=== PATIENT | male | born 1955 | race Caucasian/White ===

== ENCOUNTER → 2021-09-02 08:59 | Outpatient (CLI) | payer OTHER, SELFPAY ==
--- NOTE | 2021-09-02 09:01 | DI.MRI.S_ITS ---
PROCEDURE: MR KNEE RT WO CON INDICATIONS: persistent pain Right knee TECHNIQUE: Noncontrast sagittal PD fast spin echo and T2 fast spin echo with fat saturation, sagittal 3-D FLASH with fat saturation; coronal T1 spin echo and PD fast spin echo with fat saturation, and axial PD fast spin echo with fat saturation through the knee. COMPARISON: None. FINDINGS: Image quality: Excellent. Menisci: Intermediate signal intensity is seen within the medial and lateral menisci without extension to an articular surface, consistent with intrasubstance degeneration. There is no meniscal extrusion. Cruciate ligaments: The anterior and posterior cruciate ligaments appear intact. Medial structures: The medial collateral ligament appears intact. The semimembranosus tendon insertions and meniscocapsular junction appear intact. Visualized portions of the pes anserinus tendons appear normal. No abnormal bursal fluid. Lateral structures: The lateral collateral ligament, long and short heads of the biceps femoris tendon appear intact. The popliteus tendon appears intact. No signs of posterolateral corner injury. Iliotibial band appears normal. Anterior structures: The quadriceps and patellar tendons appear intact. Patellar alignment is normal. No femoral trochlear dysplasia or ventral trochlear prominence. No edema in the infrapatellar fat pad. Bones and cartilage: No bone marrow contusions or fractures. Focal moderate grade cartilage loss is seen in the central weight-bearing portion of the medial femoral condyle near the intercondylar notch. The lateral compartment articular cartilages are grossly intact. There is full-thickness cartilage loss at the median ridge of the patella with areas of high-grade and full-thickness cartilage loss in the medial and lateral patellar facets with subchondral cystic changes and marginal osteophyte formation. Joint space: There is a small joint effusion. A trace medial popliteal cyst is present. There is a small amount of fluid tracking along the popliteus tendon sheath. Mild edema is seen surrounding the distal adductor jonelle tendon at its insertion onto the adductor tubercle. IMPRESSION: 1. Soft tissue edema is seen surrounding the distal adductor jonelle tendon insertion onto the adductor tubercle that may indicate low-grade partial tearing. 2. Mild intrasubstance degeneration in the medial and lateral menisci without a discrete tear. 3. Intact cruciate and collateral ligaments. No acute trabecular bone injury. 4. Full-thickness cartilage loss at the median ridge of the patella with surrounding grade 3-4 chondromalacia and associated subchondral cystic changes. Focal grade 2-3 cartilage loss is seen in the central medial femoral condyle. 5. Small joint effusion. Dictated by: Aden William M.D. on 09/02/2021 at 11:02 Approved by: Aden William M.D. on 09/02/2021 at 11:14
== END ==
PROVIDERS: PCP Family Medicine; Referring Provider Family Medicine; Visit Provider Family Medicine
DX: M22.41 Chondromalacia patellae, right knee (principal); M25.561 Pain in right knee; R60.0 Localized edema
CPT/HCPCS: 73721

== ENCOUNTER → 2021-12-21 13:39 | Outpatient (CLI) | payer OTHER, SELFPAY ==
[2021-12-21 19:10] LABS: Alanine Aminotransferase 21 IU/L (<50); Albumin 4.3 g/dL (3.5-5.0); Albumin Globulin Ratio 1.7 (1.0-2.8); Alkaline Phosphatase 70 U/L (38-126); Aspartate Aminotransferase 24 IU/L (17-59); BUN Creatinine Ratio 23.3 (6-22); Bilirubin Total 1.2 mg/dL (0.2-1.3); Blood Urea Nitrogen 20 mg/dL (9-20); Calcium 9.5 mg/dL (8.4-10.2); Carbon Dioxide 30 mmol/L (22-32); Chloride 99 mmol/L (98-107); Estimated Glomerular Filt Rate > 60.0 mL/min (>60); Globulin 2.6 g/dL (1.7-4.1); Glucose 155 mg/dL (80-110); HEMOLYSIS < 15 (0-50); Potassium 3.9 mmol/L (3.4-5.1); Sodium 137 mmol/L (137-145); Total Protein 6.9 g/dL (6.3-8.2)
[2021-12-21 19:11] LABS: Hemoglobin A1C% w Est Avg Glu 7.3 % (4.0-6.0)
[2021-12-21 19:12] LABS: Add Manual Diff / Slide Review NO; Basophils Absolute Auto 100 /uL (0-100); Eosinophils Absolute Auto 100 /uL (0-450); Eosinophils Percent Auto 1.4 % (2-4); Hematocrit 45.2 % (41-53); Hemoglobin 15.7 g/dL (13.5-17.5); Lymphocytes Absolute Auto 2100 /uL (1100-4500); Lymphocytes Percent Auto 30.3 % (25-40); Mean Corpuscular HGB Conc 34.8 % (30-36); Mean Corpuscular Hemoglobin 30.6 PG (26-34); Monocytes Absolute Auto 800 /uL (0-900); Monocytes Percent Auto 10.8 % (3-14); Neutrophils Absolute Auto 4000 /uL (1500-7000); Neutrophils Percent Auto 56.5 % (50-75); Platelet Count 340 X10^3/uL (150-400); Red Blood Cell Count 5.14 X10^6/uL (4.5-5.9); Red Cell Distribution Width 12.7 % (11.6-14.8)
[2021-12-21 19:44] LABS: Prostate Specific Antigen 4.19 ng/mL (0.10-4.00)
== END ==
PROVIDERS: PCP Family Medicine; Visit Provider Family Medicine
DX: I10 Essential (primary) hypertension (principal); R35.1 Nocturia
CPT/HCPCS: 80053; 83036; 84153; 85025

== ENCOUNTER 2022-03-24 09:56 | Emergency (ER) | payer OTHER, SELFPAY ==
[2022-03-24 10:01] VITALS: BP 157/84; PULSE 86; RESP 14; TEMP 36.7; O2SAT 96; BMI 25.0
--- NOTE | 2022-03-24 10:27 | ED_ITS ---
HPI - General Adult General Chief complaint: Fever Stated complaint: Abd pain, fever/sweats x 9 days Time Seen by Provider: 03/24/22 10:20 Source: patient Mode of arrival: Ambulatory History of Present Illness HPI narrative: 66-year-old male here for evaluation of approximately 10 days of chills and subjective fevers and also generalized abdominal discomfort. No nausea vomiting. No change in bowel habits. No recent travel. No rashes. Was seen at the [facility]. He states he has been tested 2 times in the past 2 days and have been negative. He had an x-ray performed on the clinic. He was sent here today for labs and was told to come to the emergency department if his symptoms were not better. Related Data Previous Rx's Medication Instructions Recorded lisinopril 20 mg tablet 20 mg PO HS #90 tabs 12/15/21 lisinopril 20 1 tab PO DAILY #90 tabs 12/15/21 mg-hydrochlorothiazide 25 mg tablet metoprolol succinate 25 mg 25 mg PO DAILY #90 tabs 12/15/21 tablet,extended release 24 hr Allergies Allergy/AdvReac Type Severity Reaction Status Date / Time Penicillins Allergy Mild Verified 03/24/22 10:06 Review of Systems Constitutional Constitutional: Reports system reviewed and no additional complaints, except as documented Cardiovascular Cardiovascular: Denies chest pain and Denies dyspnea Respiratory Respiratory: Denies dyspnea Gastrointestinal Gastrointestinal: Reports abdominal pain, Denies diarrhea, Denies nausea and Denies vomiting Genitourinary Genitourinary: Denies dysuria Integumentary/Breasts Skin/Breast: Denies rash Neurologic Neurologic: Reports system reviewed and no additional complaints, except as documented Patient History Medical History Chicken pox (~1959) Generalized anxiety disorder Hearing loss Measles (~1960) Mumps (~1960) Osteoarthritis of right knee Surgical History (Updated 04/04/21 @ 15:29 by Yolanda Guillen) Anesthesia History of heart surgery History of surgery Family History (Updated 04/04/21 @ 15:30 by Yolanda Guillen) Father History of heart disease Mother Diabetes mellitus Social History Smoking Status: Former smoker Smoking Status: Former smoker alcohol intake frequency: 0-2 drinks per day Substance Use Type: does not use Exam Initial Vital Signs Initial Vital Signs: Vital Signs Temperature 98.1 F 03/24/22 10:01 Pulse Rate 86 03/24/22 10:01 Respiratory Rate 14 03/24/22 10:01 Blood Pressure 157/84 H 03/24/22 10:01 Pulse Oximetry 96 03/24/22 10:01 Oxygen Delivery Method 03/24/22 10:01 Const General: cooperative and healthy appearing HENMT Head: normal to inspection and normocephalic Resp Effort & Inspection: normal respiratory effort Cardio Rate: regular rate GI Other: No rebound, no guarding, mild generalized tenderness, well-healed surgical scar consistent with his history of pyloric stenosis as a child Skin Other: Well-healed surgical scar in his abdomen consistent with his prior history of pyloric stenosis Neuro General: patient alert, patient awake, patient oriented x3 and moves all extremities Extrem General: normal to inspection and capillary refill normal Psych Appearance: grossly normal and well kempt Course Orders Ordered: ED Orders 03/24/22 10:32 CT abdomen pelvis wo con Stat Vital Signs Vital signs: Vital Signs - 8 hr 03/24/22 10:01 Temperature 98.1 F Pulse Rate 86 Respiratory Rate 14 Blood Pressure 157/84 H Pulse Oximetry 96 Oxygen Delivery Method Room Air Medical Decision Making Imaging Data CT scan - abdomen/pelvis: Radiologist's Impression: [place] [address] CT Scan Report Signed Patient: Stefano Slaughter MR#: [id number] : 1955 Acct:[id number] Age/Sex: 66 / M Date of Service: 03/24/22 Loc: ED Accession Number: [id number] ?? Procedure: CT abdomen pelvis wo con Ordering Provider: Sonu Chisholm D.O. PROCEDURE:? CT ABDOMEN PELVIS WO CON ? INDICATIONS:? chills and generalized abd pain for 10 days ? TECHNIQUE:? Noncontrast 5 mm thick sections acquired from the diaphragms to the symphysis.? 5 mm coronal and sagittal reformats were then performed.? For radiation dose reduction, the following was used:? automated exposure control, adjustment of mA and/or kV according to patient size.? ? COMPARISON:? [facility], CT, CT-IVP, 05/20/2009, 11:23.? [facility] ([place]), CR, XR KUB, 03/23/2022, 16:12. ? FINDINGS:? Image quality:? Excellent.? ? ABDOMEN:? Lung bases:? No pleural effusion. ? Solid organs:? Hepatic steatosis is present.? No evidence of bile duct dilation on this noncontrast exam.? No radiopaque gallstones.? Pancreas is normal in contours.? Spleen is normal in size.? No adrenal nodules.? No urinary stone or hydroureteronephrosis. ? Peritoneum and bowel:? Unenhanced bowel loops demonstrate normal wall thickness and caliber.? Normal appendix.? No free fluid or air.? ? Nodes and vessels:? No retroperitoneal or mesenteric adenopathy by size criteria.? Aorta and inferior vena cava are unremarkable in caliber.? ? ? PELVIS:? Genitourinary:? No bladder stones demonstrated.? Coarse prostatic calcifications present as before, likely postinflammatory. ? Miscellaneous:? Fat containing right inguinal hernia. ? Bones:? Multilevel degenerative changes of the spine. ? IMPRESSION:? 1. No acute abnormality visualized within the abdomen or pelvis on this noncontrast exam. 2. Hepatic steatosis. 3. Fat containing right inguinal hernia.? ? ? Dictated by: Aden Wilkerson M.D. on 03/24/2022 at 10:58 ? ? Approved by: Aden Wilkerson M.D. on 03/24/2022 at 11:12?? MDM Narrative Medical decision making narrative: Review of his outpatient labs today are unremarkable. The CT scan of his abdomen does not show any signs of acute pathology. He has no skin changes over the area. No indication for surgical consultation. No indication for antibiotics. Informed the patient of the findings today. Informed him that he needed to contact his primary doctor for follow-up. He was given return precautions. He expressed understanding and agreement. Discharge Plan Departure Patient Disposition: Home Clinical Impression: Abdominal pain Instructions: DI for Abdominal Pain-Adult Activity Restrictions/Additional Instructions: Continue to take all of your medications as directed. Follow-up with your primary doctor when you return home. Return to the emergency department for any new symptoms. Prescriptions: No Action lisinopril 20 mg tablet 20 mg PO HS Qty: 90 3RF lisinopril-hydrochlorothiazide 20-25 mg tablet 1 tab PO DAILY Qty: 90 3RF metoprolol succinate 25 mg tablet extended release 24 hr 25 mg PO DAILY Qty: 90 3RF Referrals: Sixto Hall MD [Primary Care Provider] - Visit Report Forms: Patient Portal/API
--- NOTE | 2022-03-24 10:32 | DI.CT.S_ITS ---
PROCEDURE: CT ABDOMEN PELVIS WO CON INDICATIONS: chills and generalized abd pain for 10 days TECHNIQUE: Noncontrast 5 mm thick sections acquired from the diaphragms to the symphysis. 5 mm coronal and sagittal reformats were then performed. For radiation dose reduction, the following was used: automated exposure control, adjustment of mA and/or kV according to patient size. COMPARISON: [facility], CT, CT-IVP, 05/20/2009, 11:23. [facility] ([facility] CR, XR KUB, 03/23/2022, 16:12. FINDINGS: Image quality: Excellent. ABDOMEN: Lung bases: No pleural effusion. Solid organs: Hepatic steatosis is present. No evidence of bile duct dilation on this noncontrast exam. No radiopaque gallstones. Pancreas is normal in contours. Spleen is normal in size. No adrenal nodules. No urinary stone or hydroureteronephrosis. Peritoneum and bowel: Unenhanced bowel loops demonstrate normal wall thickness and caliber. Normal appendix. No free fluid or air. Nodes and vessels: No retroperitoneal or mesenteric adenopathy by size criteria. Aorta and inferior vena cava are unremarkable in caliber. PELVIS: Genitourinary: No bladder stones demonstrated. Coarse prostatic calcifications present as before, likely postinflammatory. Miscellaneous: Fat containing right inguinal hernia. Bones: Multilevel degenerative changes of the spine. IMPRESSION: 1. No acute abnormality visualized within the abdomen or pelvis on this noncontrast exam. 2. Hepatic steatosis. 3. Fat containing right inguinal hernia. Dictated by: Aden Wilkerson M.D. on 03/24/2022 at 10:58 Approved by: Aden Wilkerson M.D. on 03/24/2022 at 11:12
== END 2022-03-24 11:25 | disposition home or self-care (01) ==
PROVIDERS: Emergency Provider Emergency Medicine; PCP Family Medicine
DX: R10.84 Generalized abdominal pain (principal)
CPT/HCPCS: 36415; 74176; 80053; 83690; 84443; 85007; 85025; 99283

== ENCOUNTER → 2022-03-28 12:14 | Outpatient (CLI) | payer OTHER, SELFPAY ==
[2022-03-28 19:30] LABS: Hematocrit 43.4 % (41-53); Hemoglobin 15.1 g/dL (13.5-17.5); Mean Corpuscular HGB Conc 34.8 % (30-36); Mean Corpuscular Hemoglobin 30.5 PG (26-34); Mean Corpuscular Volume 87.7 fL (80-100); Platelet Count 90 X10^3/uL (150-400); Red Blood Cell Count 4.95 X10^6/uL (4.5-5.9); Red Cell Distribution Width 13.8 % (11.6-14.8); White Blood Cell Count 4.4 X10^3/uL (4.5-11.0)
[2022-03-28 19:39] LABS: Add Manual Diff / Slide Review YES
[2022-03-28 20:16] LABS: Appearance Urine UA CLEAR; Bilirubin Urine UA 1+ (NEGATIVE); Glucose Urine UA TRACE g/dL (Negative); Ketones Urine UA TRACE (NEGATIVE); Leukocyte Esterase Urine UA 1+ (NEGATIVE); Nitrite Urine UA NEGATIVE (Negative); Occult Blood Urine UA 2+ (Negative); Protein Urine UA 2+ (Negative)
[2022-03-28 20:21] LABS: Neutrophils Absolute Manual 2332 /uL (3000-5900); RBC Morphology Normal Morphology; Total Cells Counted 100
[2022-03-28 21:38] LABS: Color Urine UA Dark Yellow
[2022-03-28 21:40] LABS: Ictotest Urine Positive (Negative)
[2022-03-28 21:41] LABS: Amorphous Sediment Urine 4+; RBC Urine None Seen (0-5/HPF); Squamous Epithelial Cell Urine 0-1 /HPF (0-5/HPF); WBC Urine None Seen (0-5/HPF)
[2022-03-28 21:42] LABS: Bacteria Urine Few (2-10); Calcium Oxalate Crystals Urine Few; Culture Indicated Urine Specimen Cultured
[2022-03-29 08:09] LABS: Hepatitis A Ab IgM Negative (Negative); Hepatitis A Ab Total Positive (Negative)
== END ==
PROVIDERS: PCP Family Medicine; Visit Provider Physician Assistant
DX: D69.6 Thrombocytopenia, unspecified (principal); R35.1 Nocturia; R39.9 Unspecified symptoms and signs involving the genitourinary system
CPT/HCPCS: 81003; 81015; 85007; 85025; 86708; 87086

== ENCOUNTER → 2022-03-30 09:45 | Outpatient (CLI) | payer OTHER, SELFPAY ==
[2022-03-30 19:04] LABS: INR 1.2 (0.9-1.3); Prothrombin Time 12.9 SECONDS (10.1-12.7)
[2022-03-30 19:38] LABS: Appearance Urine UA CLEAR; Bilirubin Urine UA NEGATIVE (NEGATIVE); Color Urine UA YELLOW; Glucose Urine UA TRACE g/dL (Negative); Ketones Urine UA NEGATIVE (NEGATIVE); Leukocyte Esterase Urine UA TRACE (NEGATIVE); Nitrite Urine UA NEGATIVE (Negative); Occult Blood Urine UA TRACE-LYSED (Negative); Protein Urine UA 2+ (Negative); Urobilinogen Urine UA >=8.0 E.U./dL (0.2); pH Urine UA 6.5 (4.5-8.0)
[2022-03-30 19:43] LABS: Alanine Aminotransferase 23 IU/L (<50); Albumin 3.4 g/dL (3.5-5.0); Albumin Globulin Ratio 1.1 (1.0-2.8); Alkaline Phosphatase 96 U/L (38-126); Aspartate Aminotransferase 21 IU/L (17-59); BUN Creatinine Ratio 13.9 (6-22); Bilirubin Total 0.8 mg/dL (0.2-1.3); Blood Urea Nitrogen 14 mg/dL (9-20); Calcium 8.2 mg/dL (8.4-10.2); Carbon Dioxide 27 mmol/L (22-32); Chloride 103 mmol/L (98-107); Estimated Glomerular Filt Rate > 60 mL/min (>60); Globulin 3.2 g/dL (1.7-4.1); Glucose 132 mg/dL (80-110); HEMOLYSIS < 15 (0-50); Potassium 3.9 mmol/L (3.4-5.1); Sodium 137 mmol/L (137-145); Total Protein 6.6 g/dL (6.3-8.2)
[2022-03-30 19:46] LABS: Bacteria Urine None Seen; Culture Indicated Urine Cult Not Indicated; Hematocrit 43.6 % (41-53); Hemoglobin 15.3 g/dL (13.5-17.5); Mean Corpuscular HGB Conc 35.1 % (30-36); Mean Corpuscular Hemoglobin 30.6 PG (26-34); Mean Corpuscular Volume 87.2 fL (80-100); Platelet Count 119 X10^3/uL (150-400); RBC Urine 1-5/HPF (0-5/HPF); Red Blood Cell Count 5.01 X10^6/uL (4.5-5.9); Red Cell Distribution Width 13.7 % (11.6-14.8); WBC Urine None Seen (0-5/HPF)
[2022-03-30 20:11] LABS: Prostate Specific Antigen 11.3 ng/mL (0.10-4.00)
[2022-03-30 20:45] LABS: Folate 6.7 ng/mL (2.76-20.0); Vitamin B12 624 pg/mL (239-931)
[2022-03-30 21:49] LABS: Neutrophils Absolute Manual 3360 /uL (3000-5900); Platelet Estimate Decreased on smear; RBC Morphology Normal Morphology; Total Cells Counted 100
[2022-03-31 16:46] LABS: Hepatitis B Surface Antigen NEGATIVE s/c (NEGATIVE)
[2022-03-31 17:01] LABS: HIV 1 & 2 Ab/Ag 4th Gen Combo NEGATIVE (NEGATIVE); Hep C Virus Ab w/Reflex Quant NEGATIVE s/c (NEGATIVE)
[2022-04-05 14:15] LABS: Fecal Immunochemical Test Negative (Negative)
== END ==
PROVIDERS: PCP Family Medicine; Visit Provider Physician Assistant
DX: D69.6 Thrombocytopenia, unspecified (principal); R19.5 Other fecal abnormalities; R61 Generalized hyperhidrosis
CPT/HCPCS: 80053; 81001; 82274; 82607; 82746; 84153; 85025; 85610; 86803; 87340; 87389

== ENCOUNTER → 2022-07-13 10:21 | Outpatient (CLI) | payer OTHER, SELFPAY ==
[2022-07-13 19:34] LABS: Alanine Aminotransferase 60 IU/L (<50); Albumin 2.9 g/dL (3.5-5.0); Alkaline Phosphatase 146 U/L (38-126); Aspartate Aminotransferase 50 IU/L (17-59); BUN Creatinine Ratio 46.3 (6-22); Bilirubin Total 0.5 mg/dL (0.2-1.3); Blood Urea Nitrogen 25 mg/dL (9-20); Calcium 8.7 mg/dL (8.4-10.2); Carbon Dioxide 27 mmol/L (22-32); Chloride 100 mmol/L (98-107); Estimated Glomerular Filt Rate > 60 mL/min (>60); Globulin 3.9 g/dL (1.7-4.1); Glucose 114 mg/dL (80-110); Hematocrit 31.5 % (41-53); Hemoglobin 10.6 g/dL (13.5-17.5); Mean Corpuscular HGB Conc 33.5 % (30-36); Mean Corpuscular Hemoglobin 31.1 PG (26-34); Mean Corpuscular Volume 92.8 fL (80-100); Platelet Count 549 X10^3/uL (150-400); Red Blood Cell Count 3.39 X10^6/uL (4.5-5.9); Red Cell Distribution Width 18.2 % (11.6-14.8); Sodium 137 mmol/L (137-145); Total Protein 6.8 g/dL (6.3-8.2); White Blood Cell Count 14.5 X10^3/uL (4.5-11.0)
[2022-07-13 19:35] LABS: Albumin Globulin Ratio 0.7 (1.0-2.8); HEMOLYSIS < 15 (0-50)
[2022-07-13 19:38] LABS: Add Manual Diff / Slide Review YES
[2022-07-13 20:06] LABS: Anisocytosis 2+; Neutrophils Absolute Manual 9280 /uL (3000-5900); Total Cells Counted 100
[2022-07-13 20:55] LABS: Ferritin 1450 ng/mL (18-464)
== END ==
PROVIDERS: PCP Family Medicine; Referring Provider Family Medicine; Visit Provider Internal Medicine
DX: D76.1 Hemophagocytic lymphohistiocytosis (principal)
CPT/HCPCS: 80053; 82728; 85007; 85025

== ENCOUNTER → 2022-08-23 11:43 | Outpatient (CLI) | payer OTHER, SELFPAY | PROVIDERS: PCP Family Medicine; Visit Provider Urology | DX: R30.0 Dysuria (principal); N39.41 Urge incontinence; R35.1 Nocturia; R97.20 Elevated prostate specific antigen [PSA]; R53.81 Other malaise; R39.9 Unspecified symptoms and signs involving the genitourinary system; N39.8 Other specified disorders of urinary system; N32.89 Other specified disorders of bladder | CPT/HCPCS: 51798; 81002; 87077; 87086; 87186; 99214 ==

== ENCOUNTER → 2022-09-14 08:48 | Outpatient (CLI) | payer OTHER, SELFPAY | PROVIDERS: PCP Family Medicine; Referring Provider Urology; Visit Provider Urology | DX: R39.9 Unspecified symptoms and signs involving the genitourinary system (principal) | CPT/HCPCS: 81002; 87086 ==

== ENCOUNTER → 2022-09-27 11:30 | Outpatient (CLI) | payer OTHER, SELFPAY ==
[2022-09-27 19:42] LABS: Alanine Aminotransferase 15 IU/L (<50); Albumin Globulin Ratio 0.8 (1.0-2.8); Alkaline Phosphatase 120 U/L (38-126); Aspartate Aminotransferase 25 IU/L (17-59); BUN Creatinine Ratio 26.2 (6-22); Bilirubin Total 0.8 mg/dL (0.2-1.3); Blood Urea Nitrogen 17 mg/dL (9-20); Calcium 9.7 mg/dL (8.4-10.2); Carbon Dioxide 22 mmol/L (22-32); Chloride 101 mmol/L (98-107); Estimated Glomerular Filt Rate > 60 mL/min (>60); Gamma Glutamyl Transpeptidase 59 U/L (15-73); Globulin 3.7 g/dL (1.7-4.1); Glucose 129 mg/dL (80-110); HEMOLYSIS < 15 (0-50); Potassium 3.6 mmol/L (3.4-5.1); Sodium 136 mmol/L (137-145); Total Protein 6.7 g/dL (6.3-8.2)
[2022-09-27 19:50] LABS: Add Manual Diff / Slide Review NO; Basophils Absolute Auto 100 /uL (0-100); Basophils Percent Auto 0.3 % (0-2); Eosinophils Absolute Auto 100 /uL (0-450); Eosinophils Percent Auto 0.2 % (2-4); Hematocrit 33.7 % (41-53); Hemoglobin 11.4 g/dL (13.5-17.5); Lymphocytes Absolute Auto 3900 /uL (1100-4500); Lymphocytes Percent Auto 15.8 % (25-40); Mean Corpuscular HGB Conc 33.8 % (30-36); Mean Corpuscular Hemoglobin 29.7 PG (26-34); Monocytes Absolute Auto 2200 /uL (0-900); Monocytes Percent Auto 9.1 % (3-14); Neutrophils Absolute Auto 18400 /uL (1500-7000); Neutrophils Percent Auto 74.6 % (50-75); Platelet Count 517 X10^3/uL (150-400); Red Blood Cell Count 3.83 X10^6/uL (4.5-5.9); Red Cell Distribution Width 14.5 % (11.6-14.8); White Blood Cell Count 24.7 X10^3/uL (4.5-11.0)
[2022-09-27 20:09] LABS: TSH w/ Reflex to FT4 1.94 uIU/mL (0.47-4.68)
[2022-09-27 20:14] LABS: Ferritin 674 ng/mL (18-464)
== END ==
PROVIDERS: PCP Family Medicine; Visit Provider Physician Assistant
DX: R39.9 Unspecified symptoms and signs involving the genitourinary system (principal); Z87.440 Personal history of urinary (tract) infections; D76.1 Hemophagocytic lymphohistiocytosis; Z87.448 Personal history of other diseases of urinary system
CPT/HCPCS: 80053; 82728; 82977; 84443; 85025; 87086

== ENCOUNTER → 2022-10-05 10:32 | Outpatient (CLI) | payer OTHER, SELFPAY ==
[2022-10-05 20:10] LABS: Add Manual Diff / Slide Review NO; Basophils Absolute Auto 100 /uL (0-100); Basophils Percent Auto 0.7 % (0-2); Eosinophils Absolute Auto 100 /uL (0-450); Eosinophils Percent Auto 0.5 % (2-4); Hematocrit 34.1 % (41-53); Hemoglobin 11.3 g/dL (13.5-17.5); Lymphocytes Absolute Auto 3300 /uL (1100-4500); Lymphocytes Percent Auto 15.9 % (25-40); Mean Corpuscular HGB Conc 33.2 % (30-36); Mean Corpuscular Hemoglobin 29.6 PG (26-34); Monocytes Absolute Auto 1700 /uL (0-900); Monocytes Percent Auto 8.5 % (3-14); Neutrophils Absolute Auto 15300 /uL (1500-7000); Neutrophils Percent Auto 74.4 % (50-75); Platelet Count 692 X10^3/uL (150-400); Red Blood Cell Count 3.83 X10^6/uL (4.5-5.9); Red Cell Distribution Width 14.1 % (11.6-14.8); White Blood Cell Count 20.5 X10^3/uL (4.5-11.0)
[2022-10-05 20:16] LABS: Alanine Aminotransferase 17 IU/L (<50); Albumin 2.9 g/dL (3.5-5.0); Albumin Globulin Ratio 0.8 (1.0-2.8); Alkaline Phosphatase 113 U/L (38-126); Aspartate Aminotransferase 23 IU/L (17-59); BUN Creatinine Ratio 15.5 (6-22); Bilirubin Total 1.2 mg/dL (0.2-1.3); Blood Urea Nitrogen 13 mg/dL (9-20); Carbon Dioxide 25 mmol/L (22-32); Chloride 100 mmol/L (98-107); Estimated Glomerular Filt Rate > 60 mL/min (>60); Globulin 3.6 g/dL (1.7-4.1); Glucose 139 mg/dL (80-110); HEMOLYSIS < 15 (0-50); Sodium 135 mmol/L (137-145); Total Protein 6.5 g/dL (6.3-8.2); Triglycerides 175 mg/dL (35-150)
[2022-10-05 20:41] LABS: Ferritin 623 ng/mL (18-464)
== END ==
PROVIDERS: Internal Medicine Hematology & Oncology; PCP Family Medicine; Visit Provider Family Medicine
DX: D76.1 Hemophagocytic lymphohistiocytosis (principal); R50.9 Fever, unspecified
CPT/HCPCS: 80053; 82728; 84478; 85025; 86356; 86359; 86360

== ENCOUNTER → 2022-10-24 12:02 | Outpatient (CLI) | payer OTHER, SELFPAY ==
[2022-10-24 20:24] LABS: Add Manual Diff / Slide Review NO; Basophils Absolute Auto 100 /uL (0-100); Basophils Percent Auto 0.3 % (0-2); Eosinophils Absolute Auto 0 /uL (0-450); Eosinophils Percent Auto 0.1 % (2-4); Hematocrit 32.3 % (41-53); Hemoglobin 10.6 g/dL (13.5-17.5); Lymphocytes Absolute Auto 3200 /uL (1100-4500); Lymphocytes Percent Auto 17.6 % (25-40); Mean Corpuscular HGB Conc 32.8 % (30-36); Mean Corpuscular Hemoglobin 28.3 PG (26-34); Mean Corpuscular Volume 86.3 fL (80-100); Monocytes Absolute Auto 2100 /uL (0-900); Monocytes Percent Auto 11.7 % (3-14); Neutrophils Absolute Auto 12900 /uL (1500-7000); Neutrophils Percent Auto 70.3 % (50-75); Platelet Count 576 X10^3/uL (150-400); Red Blood Cell Count 3.74 X10^6/uL (4.5-5.9); White Blood Cell Count 18.3 X10^3/uL (4.5-11.0)
[2022-10-24 20:33] LABS: Alanine Aminotransferase 15 IU/L (<50); Albumin 2.5 g/dL (3.5-5.0); Albumin Globulin Ratio 0.6 (1.0-2.8); Alkaline Phosphatase 107 U/L (38-126); Amylase 38 U/L (30-110); Aspartate Aminotransferase 23 IU/L (17-59); BUN Creatinine Ratio 16.1 (6-22); Bilirubin Total 1.2 mg/dL (0.2-1.3); Blood Urea Nitrogen 15 mg/dL (9-20); Calcium 8.4 mg/dL (8.4-10.2); Carbon Dioxide 21 mmol/L (22-32); Chloride 101 mmol/L (98-107); Estimated Glomerular Filt Rate > 60 mL/min (>60); Globulin 3.9 g/dL (1.7-4.1); Glucose 153 mg/dL (80-110); HEMOLYSIS < 15 (0-50); Lipase 62 U/L (23-300); Potassium 4.1 mmol/L (3.4-5.1); Sodium 134 mmol/L (137-145); Total Protein 6.4 g/dL (6.3-8.2)
[2022-10-24 21:05] LABS: Ferritin 519 ng/mL (18-464)
[2022-10-24 21:09] LABS: Appearance Urine UA CLEAR; Bilirubin Urine UA 1+ (NEGATIVE); Glucose Urine UA NEGATIVE (Negative); Ketones Urine UA NEGATIVE (NEGATIVE); Leukocyte Esterase Urine UA 1+ (NEGATIVE); Nitrite Urine UA NEGATIVE (Negative); Occult Blood Urine UA NEGATIVE (Negative); Protein Urine UA TRACE (Negative); Specific Gravity Urine UA 1.025 (1.000-1.035); Urobilinogen Urine UA 0.2 E.U./dL (0.2); pH Urine UA 5.5 (4.5-8.0)
[2022-10-24 21:10] LABS: Color Urine UA Amber
[2022-10-24 21:19] LABS: Ictotest Urine Negative (Negative)
[2022-10-24 21:23] LABS: Amorphous Sediment Urine 1+; Bacteria Urine Occasional (0-1); Calcium Oxalate Crystals Urine Few; Culture Indicated Urine Specimen Cultured; RBC Urine 0-1/HPF (0-5/HPF); Squamous Epithelial Cell Urine None Seen (0-5/HPF); WBC Urine 1-5/HPF (0-5/HPF)
[2022-10-24 22:47] LABS: HEMOLYSIS < 15 (0-50); Iron 24 ug/dL (49-181)
[2022-10-24 22:54] LABS: Transferrin 90 mg/dL (206-381)
[2022-10-24 23:00] LABS: Prostate Specific Antigen 1.35 ng/mL (0.10-4.00)
[2022-10-24 23:18] LABS: TSH w/ Reflex to FT4 2.74 uIU/mL (0.47-4.68)
[2022-10-26 15:08] LABS: Percent Iron Saturation 15 % (20-50); Total Iron Binding Capacity 160 ug/dL (261-462)
== END ==
PROVIDERS: PCP Family Medicine; Visit Provider Family Medicine
DX: D72.829 Elevated white blood cell count, unspecified (principal); D76.1 Hemophagocytic lymphohistiocytosis; I48.91 Unspecified atrial fibrillation; I95.9 Hypotension, unspecified; R50.9 Fever, unspecified; R97.20 Elevated prostate specific antigen [PSA]; Z87.440 Personal history of urinary (tract) infections
CPT/HCPCS: 80053; 81001; 82150; 82728; 83540; 83550; 83690; 84153; 84443; 85025; 87086

== ENCOUNTER → 2022-12-07 14:11 | Outpatient (CLI) | payer OTHER, SELFPAY ==
[2022-12-07 19:33] LABS: Alanine Aminotransferase 16 IU/L (<50); Albumin 3.1 g/dL (3.5-5.0); Albumin Globulin Ratio 0.8 (1.0-2.8); Alkaline Phosphatase 104 U/L (38-126); Aspartate Aminotransferase 27 IU/L (17-59); BUN Creatinine Ratio 39.1 (6-22); Bilirubin Total 0.5 mg/dL (0.2-1.3); Blood Urea Nitrogen 25 mg/dL (9-20); Calcium 8.7 mg/dL (8.4-10.2); Carbon Dioxide 32 mmol/L (22-32); Chloride 101 mmol/L (98-107); Estimated Glomerular Filt Rate > 60 mL/min (>60); Glucose 106 mg/dL (80-110); HEMOLYSIS < 15 (0-50); Lactate Dehydrogenase 134 U/L (120-246); Magnesium 1.9 mg/dL (1.6-2.3); Phosphorous 4.4 mg/dL (2.3-3.7); Potassium 4.4 mmol/L (3.4-5.1); Sodium 140 mmol/L (137-145); Total Protein 7.1 g/dL (6.3-8.2)
[2022-12-07 19:57] LABS: Basophils Absolute Auto 100 /uL (0-100); Basophils Percent Auto 0.8 % (0-2); Eosinophils Absolute Auto 100 /uL (0-450); Eosinophils Percent Auto 0.6 % (2-4); Hematocrit 34.7 % (41-53); Hemoglobin 11.4 g/dL (13.5-17.5); Lymphocytes Absolute Auto 4400 /uL (1100-4500); Lymphocytes Percent Auto 43.9 % (25-40); Mean Corpuscular HGB Conc 32.8 % (30-36); Mean Corpuscular Hemoglobin 31.1 PG (26-34); Mean Corpuscular Volume 94.6 fL (80-100); Monocytes Absolute Auto 1500 /uL (0-900); Monocytes Percent Auto 14.8 % (3-14); Neutrophils Absolute Auto 4000 /uL (1500-7000); Neutrophils Percent Auto 39.9 % (50-75); Platelet Count 526 X10^3/uL (150-400); Red Blood Cell Count 3.66 X10^6/uL (4.5-5.9)
[2022-12-07 20:04] LABS: Add Manual Diff / Slide Review SLIDE REVIEW
[2022-12-07 20:07] LABS: Ferritin 360 ng/mL (18-464)
[2022-12-07 21:43] LABS: RBC Morphology Normal Morphology
== END ==
PROVIDERS: Internal Medicine; PCP Family Medicine; Visit Provider Family Medicine
DX: D76.1 Hemophagocytic lymphohistiocytosis (principal)
CPT/HCPCS: 80053; 82728; 83615; 83735; 84100; 85025

== ENCOUNTER → 2022-12-21 14:07 | Outpatient (CLI) | payer OTHER, SELFPAY ==
[2022-12-21 19:06] LABS: Add Manual Diff / Slide Review NO; Basophils Absolute Auto 100 /uL (0-100); Basophils Percent Auto 0.8 % (0-2); Eosinophils Absolute Auto 100 /uL (0-450); Eosinophils Percent Auto 0.9 % (2-4); Hemoglobin 12.8 g/dL (13.5-17.5); Lymphocytes Absolute Auto 5400 /uL (1100-4500); Lymphocytes Percent Auto 40.3 % (25-40); Mean Corpuscular HGB Conc 33.6 % (30-36); Mean Corpuscular Hemoglobin 31.8 PG (26-34); Mean Corpuscular Volume 94.8 fL (80-100); Monocytes Absolute Auto 1600 /uL (0-900); Monocytes Percent Auto 11.7 % (3-14); Neutrophils Absolute Auto 6200 /uL (1500-7000); Neutrophils Percent Auto 46.3 % (50-75); Platelet Count 411 X10^3/uL (150-400); Red Blood Cell Count 4.01 X10^6/uL (4.5-5.9); Red Cell Distribution Width 19.8 % (11.6-14.8); White Blood Cell Count 13.5 X10^3/uL (4.5-11.0)
[2022-12-21 19:10] LABS: Alanine Aminotransferase 20 IU/L (<50); Albumin 3.3 g/dL (3.5-5.0); Albumin Globulin Ratio 0.8 (1.0-2.8); Alkaline Phosphatase 93 U/L (38-126); Aspartate Aminotransferase 24 IU/L (17-59); BUN Creatinine Ratio 50.9 (6-22); Bilirubin Total 0.4 mg/dL (0.2-1.3); Blood Urea Nitrogen 28 mg/dL (9-20); Carbon Dioxide 31 mmol/L (22-32); Chloride 101 mmol/L (98-107); Estimated Glomerular Filt Rate > 60 mL/min (>60); Globulin 3.9 g/dL (1.7-4.1); Glucose 105 mg/dL (80-110); HEMOLYSIS < 15 (0-50); Lactate Dehydrogenase 134 U/L (120-246); Phosphorous 4.1 mg/dL (2.3-3.7); Potassium 4.5 mmol/L (3.4-5.1); Sodium 139 mmol/L (137-145); Total Protein 7.2 g/dL (6.3-8.2)
[2022-12-21 19:46] LABS: Ferritin 327 ng/mL (18-464)
== END ==
PROVIDERS: Internal Medicine; PCP Family Medicine; Visit Provider Physician Assistant
DX: D76.1 Hemophagocytic lymphohistiocytosis (principal)
CPT/HCPCS: 80053; 82728; 83615; 83735; 84100; 85025

== ENCOUNTER → 2023-07-10 14:29 | Outpatient (CLI) | payer OTHER, SELFPAY ==
[2023-07-10 19:59] LABS: Add Manual Diff / Slide Review NO; Basophils Absolute Auto 0 /uL (0-100); Basophils Percent Auto 0.6 % (0-2); Eosinophils Absolute Auto 100 /uL (0-450); Eosinophils Percent Auto 1.4 % (2-4); Hematocrit 43.4 % (41-53); Hemoglobin 15.1 g/dL (13.5-17.5); Lymphocytes Absolute Auto 3400 /uL (1100-4500); Lymphocytes Percent Auto 41.9 % (25-40); Mean Corpuscular HGB Conc 34.9 % (30-36); Mean Corpuscular Hemoglobin 29.9 PG (26-34); Mean Corpuscular Volume 85.9 fL (80-100); Monocytes Absolute Auto 900 /uL (0-900); Neutrophils Absolute Auto 3700 /uL (1500-7000); Neutrophils Percent Auto 45.1 % (50-75); Platelet Count 289 X10^3/uL (150-400); Red Blood Cell Count 5.06 X10^6/uL (4.5-5.9); Red Cell Distribution Width 14.1 % (11.6-14.8); White Blood Cell Count 8.2 X10^3/uL (4.5-11.0)
[2023-07-10 20:08] LABS: Alanine Aminotransferase 13 IU/L (<50); Albumin 4.1 g/dL (3.5-5.0); Albumin Globulin Ratio 1.2 (1.0-2.8); Alkaline Phosphatase 84 U/L (38-126); Aspartate Aminotransferase 22 IU/L (17-59); BUN Creatinine Ratio 18.9 (6-22); Blood Urea Nitrogen 20 mg/dL (9-20); Calcium 9.6 mg/dL (8.4-10.2); Carbon Dioxide 26 mmol/L (22-32); Chloride 103 mmol/L (98-107); Estimated Glomerular Filt Rate > 60 mL/min (>60); Globulin 3.3 g/dL (1.7-4.1); Glucose 119 mg/dL (80-110); HEMOLYSIS 20 (0-50); Lactate Dehydrogenase 151 U/L (120-246); Magnesium 1.8 mg/dL (1.6-2.3); Phosphorous 3.5 mg/dL (2.3-3.7); Potassium 4.4 mmol/L (3.4-5.1); Sodium 139 mmol/L (137-145); Total Protein 7.4 g/dL (6.3-8.2)
== END ==
PROVIDERS: PCP Family Medicine; Visit Provider Family Medicine
DX: D76.1 Hemophagocytic lymphohistiocytosis (principal)
CPT/HCPCS: 80053; 83615; 83735; 84100; 85025

== ENCOUNTER → 2023-08-04 09:16 | Outpatient (CLI) | payer OTHER, SELFPAY | PROVIDERS: PCP Family Medicine; Visit Provider Urology | DX: N39.41 Urge incontinence (principal); R31.29 Other microscopic hematuria; R35.1 Nocturia; R39.9 Unspecified symptoms and signs involving the genitourinary system; Z87.440 Personal history of urinary (tract) infections; Z87.442 Personal history of urinary calculi | CPT/HCPCS: 81002; 87086; 87147; 99214 ==

== ENCOUNTER → 2023-08-11 12:08 | Outpatient (CLI) | payer OTHER, SELFPAY ==
[2023-08-11 18:17] LABS: Appearance Urine UA CLEAR; Bilirubin Urine UA NEGATIVE (NEGATIVE); Color Urine UA YELLOW; Glucose Urine UA NEGATIVE (Negative); Ketones Urine UA NEGATIVE (NEGATIVE); Leukocyte Esterase Urine UA TRACE (NEGATIVE); Nitrite Urine UA NEGATIVE (Negative); Occult Blood Urine UA 2+ (Negative); Protein Urine UA 3+ (Negative); Specific Gravity Urine UA >=1.030 (1.000-1.035)
[2023-08-11 18:51] LABS: Bacteria Urine Occasional (0-1); Culture Indicated Urine Cult Not Indicated; RBC Urine 10-30/HPF (0-5/HPF); Squamous Epithelial Cell Urine 0-1 /HPF (0-5/HPF); WBC Urine 1-5/HPF (0-5/HPF)
== END ==
PROVIDERS: PCP Family Medicine; Visit Provider Family Medicine
DX: R39.9 Unspecified symptoms and signs involving the genitourinary system (principal); R31.29 Other microscopic hematuria
CPT/HCPCS: 81001; 87086

== ENCOUNTER → 2023-09-08 08:27 | Outpatient (CLI) | payer OTHER, SELFPAY ==
--- NOTE | 2023-09-08 08:30 | DI.CT.S_ITS ---
PROCEDURE: CT ABDOMEN PELVIS WO/W CON INDICATIONS: Microscopic hematuria history of kidney stones abdominal samanta TECHNIQUE: Optional 5 mm thick noncontrast images acquired from the diaphragm to the symphysis pubis. After the administration of intravenous contrast, 5 mm thick images acquired from the diaphragm to the symphysis pubis after a 10-minute delay. 2 mm thick coronal and sagittal reformats were then performed of the kidneys and ureters. For radiation dose reduction, the following was used: automated exposure control, adjustment of mA and/or kV according to patient size. COMPARISON: None. FINDINGS: Image quality: Excellent. Lung bases: Lung bases are clear. Heart size is normal. Urinary system: Both kidneys are normal size. There are numerous cortical round hypodensities in each kidney including a 1.2 cm partially exophytic hyperdense cyst arising from the upper pole right kidney. No solid enhancing parenchymal masses. No collecting system stones. Calices are normally opacified postcontrast. No filling defects. No hydronephrosis or hydroureter. The prostate gland is moderately enlarged. Urinary bladder wall is normal thickness. No visible intraluminal masses. Other solid organs: Liver is normal in size and enhancement. There is a subcentimeter nonenhancing hypodensity in segment 4. Gallbladder contains hyperdense material layering near the neck, possibly granular stones. No biliary dilatation. The fat plane between the tail of the pancreas and splenic hilum has been obliterated. There is a trace amount of fluid adjacent to the spleen laterally. The spleen size is normal. The fat plane between the stomach and pancreatic tail is also not well-defined. The splenic vein appears attenuated. Both adrenal glands are negative for nodules although the lateral limb left adrenal gland appears pole towards the splenic hilum. Peritoneum and bowel: No small or large bowel obstruction. Normal appendix. No other areas of fluid in the abdomen other than left upper quadrant. No fluid along the left pericolic gutter. Nodes and vessels: Normal caliber abdominal aorta and IVC. Circumaortic left renal veins. There may be developing perigastric ascites along the lesser curvature of the proximal stomach. Abdominal wall: No ventral hernias. Pelvis: Small fat containing right inguinal hernia. No pelvic adenopathy. Pelvic vasculature is normal caliber. No suspicious pelvic mass. Bones: No suspicious bony lesions. No vertebral body compression fractures. Partial L3-4 vertebral body ankylosis. IMPRESSION: 1. No evidence of urinary calcification, obstruction, or suspicious mass. 2. Suspicious indistinct mass/mass effect in the left upper quadrant at the splenic hilum, potentially arising from the pancreatic tail and attenuating the splenic vein. Further evaluation with pancreatic protocol, contrast-enhanced CT or MRI is recommended. 3. Fat containing right inguinal hernia. Dictated by: Supriya Duran M.D. on 09/08/2023 at 14:00 Approved by: Supriya Duran M.D. on 09/08/2023 at 14:13
[2023-09-08 09:09] LABS: Blood Urea Nitrogen 24 mg/dL (9-20); Calcium 9.9 mg/dL (8.4-10.2); Carbon Dioxide 27 mmol/L (22-32); Chloride 102 mmol/L (98-107); Estimated Glomerular Filt Rate > 60 mL/min (>60); Glucose 277 mg/dL (80-110); HEMOLYSIS 21 (0-50); Potassium 4.3 mmol/L (3.4-5.1); Sodium 138 mmol/L (137-145)
== END ==
PROVIDERS: PCP Family Medicine; Referring Provider Urology; Visit Provider Urology
DX: R31.29 Other microscopic hematuria (principal); R16.1 Splenomegaly, not elsewhere classified; K40.90 Unilateral inguinal hernia, without obstruction or gangrene, not specified as recurrent; K86.89 Other specified diseases of pancreas; N32.81 Overactive bladder; N39.9 Disorder of urinary system, unspecified; Z87.442 Personal history of urinary calculi; Z87.440 Personal history of urinary (tract) infections
CPT/HCPCS: 36415; 51798; 52000; 74178; 80048; 81002; Q9967

== ENCOUNTER → 2023-12-08 11:32 | Outpatient (CLI) | payer OTHER, SELFPAY ==
[2023-12-08 19:20] LABS: Appearance Urine UA CLEAR; Bilirubin Urine UA NEGATIVE (NEGATIVE); Color Urine UA YELLOW; Glucose Urine UA 3+ g/dL (Negative); Ketones Urine UA NEGATIVE (NEGATIVE); Leukocyte Esterase Urine UA NEGATIVE (NEGATIVE); Nitrite Urine UA NEGATIVE (Negative); Occult Blood Urine UA 1+ (Negative); Protein Urine UA TRACE (Negative); Specific Gravity Urine UA <=1.005 (1.000-1.035); Urobilinogen Urine UA 0.2 E.U./dL (0.2)
[2023-12-08 19:33] LABS: Bacteria Urine Occasional (0-1); Culture Indicated Urine Cult Not Indicated; RBC Urine 1-5/HPF (0-5/HPF); Squamous Epithelial Cell Urine 0-1 /HPF (0-5/HPF); Urine Volume 10mL (spun); WBC Urine 1-5/HPF (0-5/HPF)
== END ==
PROVIDERS: PCP Family Medicine; Visit Provider Urology
DX: N32.81 Overactive bladder (principal); R31.29 Other microscopic hematuria; R39.9 Unspecified symptoms and signs involving the genitourinary system; N39.41 Urge incontinence
CPT/HCPCS: 81001

== ENCOUNTER → 2023-12-14 10:56 | Outpatient (CLI) | payer OTHER, SELFPAY ==
[2023-12-14 19:44] LABS: Add Manual Diff / Slide Review NO; Basophils Absolute Auto 0 /uL (0-100); Basophils Percent Auto 0.6 % (0-2); Eosinophils Absolute Auto 100 /uL (0-450); Eosinophils Percent Auto 0.9 % (2-4); Hematocrit 44.5 % (41-53); Hemoglobin 15.6 g/dL (13.5-17.5); Lymphocytes Absolute Auto 2600 /uL (1100-4500); Lymphocytes Percent Auto 33.5 % (25-40); Mean Corpuscular Hemoglobin 30.7 PG (26-34); Mean Corpuscular Volume 87.9 fL (80-100); Monocytes Absolute Auto 700 /uL (0-900); Monocytes Percent Auto 9.2 % (3-14); Neutrophils Absolute Auto 4300 /uL (1500-7000); Neutrophils Percent Auto 55.8 % (50-75); Platelet Count 252 X10^3/uL (150-400); Red Blood Cell Count 5.06 X10^6/uL (4.5-5.9); White Blood Cell Count 7.8 X10^3/uL (4.5-11.0)
[2023-12-14 20:26] LABS: Alanine Aminotransferase 13 IU/L (<50); Albumin Globulin Ratio 1.3 (1.0-2.8); Alkaline Phosphatase 127 U/L (38-126); Aspartate Aminotransferase 21 IU/L (17-59); BUN Creatinine Ratio 22.5 (6-22); Bilirubin Total 1.8 mg/dL (0.2-1.3); Blood Urea Nitrogen 20 mg/dL (9-20); Calcium 9.2 mg/dL (8.4-10.2); Carbon Dioxide 27 mmol/L (22-32); Chloride 94 mmol/L (98-107); Estimated Glomerular Filt Rate > 60 mL/min (>60); Lactate Dehydrogenase 129 U/L (120-246); Magnesium 1.8 mg/dL (1.6-2.3); Phosphorous 3.6 mg/dL (2.3-3.7); Potassium 5.3 mmol/L (3.4-5.1); Sodium 129 mmol/L (137-145)
[2023-12-14 20:34] LABS: HEMOLYSIS 19 (0-50)
[2023-12-14 21:52] LABS: Glucose 656 mg/dL (80-110)
== END ==
PROVIDERS: PCP Family Medicine; Visit Provider Physician Assistant Medical
DX: D76.1 Hemophagocytic lymphohistiocytosis (principal)
CPT/HCPCS: 80053; 83615; 83735; 84100; 85025

== ENCOUNTER → 2024-03-12 10:21 | Outpatient (CLI) | payer OTHER, SELFPAY ==
[2024-03-12 19:25] LABS: Alanine Aminotransferase 17 IU/L (<50); Albumin 4.7 g/dL (3.5-5.0); Albumin Globulin Ratio 1.5 (1.0-2.8); Alkaline Phosphatase 92 U/L (38-126); Aspartate Aminotransferase 29 IU/L (17-59); BUN Creatinine Ratio 25.2 (6-22); Bilirubin Total 1.2 mg/dL (0.2-1.3); Blood Urea Nitrogen 27 mg/dL (9-20); Calcium 9.3 mg/dL (8.4-10.2); Carbon Dioxide 25 mmol/L (22-32); Chloride 107 mmol/L (98-107); Cholesterol 192 mg/dL (140-199); Estimated Glomerular Filt Rate > 60 mL/min (>60); Globulin 3.2 g/dL (1.7-4.1); Glucose 129 mg/dL (80-110); HDL Cholesterol 37 mg/dL (40-60); HEMOLYSIS 21 (0-50); LDL Cholesterol Calculated 129 mg/dL (<100); Potassium 4.1 mmol/L (3.4-5.1); Sodium 140 mmol/L (137-145); Total Protein 7.9 g/dL (6.3-8.2); Triglycerides 131 mg/dL (35-150)
[2024-03-12 19:27] LABS: HEMOLYSIS 28 (0-50); Iron 100 ug/dL (49-181)
[2024-03-12 19:30] LABS: Creatinine Urine Random 135.33 mg/dL
[2024-03-12 19:33] LABS: Hemoglobin A1C% w Est Avg Glu 6.4 % (4.0-6.0)
[2024-03-12 19:37] LABS: Percent Iron Saturation 30 % (20-50); Total Iron Binding Capacity 337 ug/dL (261-462); Transferrin 248 mg/dL (206-381)
[2024-03-12 20:12] LABS: Ferritin 95 ng/mL (18-464)
[2024-03-12 20:28] LABS: Vitamin B12 492 pg/mL (239-931)
[2024-03-14 07:13] LABS: C Peptide 3.3 ng/mL (1.1-4.4)
== END ==
PROVIDERS: PCP Family Medicine; Visit Provider Physician Assistant Medical
DX: R73.9 Hyperglycemia, unspecified (principal)
CPT/HCPCS: 80053; 80061; 82043; 82570; 82607; 82728; 83036; 83540; 83550; 84443; 84681

== ENCOUNTER → 2024-10-09 10:07 | Outpatient (CLI) | payer OTHER, SELFPAY ==
[2024-10-09 20:00] LABS: Alanine Aminotransferase 23 IU/L (<50); Albumin 4.7 g/dL (3.5-5.0); Albumin Globulin Ratio 1.6 (1.0-2.8); Alkaline Phosphatase 70 U/L (38-126); Aspartate Aminotransferase 32 IU/L (17-59); Bilirubin Total 1.6 mg/dL (0.2-1.3); Blood Urea Nitrogen 27 mg/dL (9-20); Calcium 9.5 mg/dL (8.4-10.2); Carbon Dioxide 27 mmol/L (22-32); Chloride 102 mmol/L (98-107); Cholesterol 169 mg/dL (140-199); Estimated Glomerular Filt Rate > 60 mL/min (>60); Globulin 2.9 g/dL (1.7-4.1); Glucose 132 mg/dL (80-110); HDL Cholesterol 32 mg/dL (40-60); HEMOLYSIS 42 (0-50); LDL Cholesterol Calculated 99 mg/dL (<100); Potassium 4.3 mmol/L (3.4-5.1); Sodium 139 mmol/L (137-145); Total Protein 7.6 g/dL (6.3-8.2); Triglycerides 190 mg/dL (35-150)
[2024-10-09 20:07] LABS: Hemoglobin A1C% w Est Avg Glu 6.2 % (4.0-6.0)
[2024-10-09 20:31] LABS: Thyroid Stimulating Hormone 2.54 uIU/mL (0.47-4.68)
[2024-10-09 20:50] LABS: Vitamin B12 664 pg/mL (239-931)
[2024-10-09 22:28] LABS: Microalbumin Urine Random 95.1 mg/dL (0-1.6)
[2024-10-10 23:07] LABS: C Peptide 4.2 ng/mL (1.1-4.4)
== END ==
PROVIDERS: PCP Family Medicine; Visit Provider Family Medicine
DX: E11.8 Type 2 diabetes mellitus with unspecified complications (principal); Z79.4 Long term (current) use of insulin
CPT/HCPCS: 80053; 80061; 82043; 82570; 82607; 83036; 84443; 84681